=== PATIENT | male | born 1970 ===

== ENCOUNTER 2017-05-13 12:41 | Inpatient (IN) | payer MEDICAID, OTHER ==
[2017-05-13 13:26] LABS: URINE BILIRUBIN NEGATIVE (NEGATIVE); URINE BLOOD NEGATIVE (NEGATIVE); URINE COLOR Yellow (YELLOW); URINE GLUCOSE (UA) NORMAL (Normal); URINE KETONE NEGATIVE (NEGATIVE); URINE LEUKOCYTE ESTERASE NEG Leu/uL (Negative); URINE PROTEIN NEGATIVE (NEGATIVE); WBC URINE < 1 /hpf (0-5)
[2017-05-13 14:09] LABS: BASO # 0.1 K/uL (0.0-0.2); BASO % 0.4 % (0.0-2.0); EOS % 0.2 % (0.0-4.0); LYMPH # 1.8 K/uL (1.0-4.3); LYMPH % 15.1 % (20.0-40.0); MEAN CELL VOLUME 87.1 fL (80.0-94.0); MEAN CORPUSCULAR HEMOGLOBIN 29.2 pg (27.0-31.0); MEAN CORPUSCULAR HGB CONC 33.5 g/dL (33.0-37.0); MEAN PLATELET VOLUME 7.9 fL (7.2-11.7); MONO # 0.4 K/uL (0.0-0.8); MONO % 3.2 % (0.0-10.0); RED CELL DISTRIBUTION WIDTH 13.4 % (11.5-14.5); WHITE BLOOD COUNT 12.2 K/uL (4.8-10.8)
[2017-05-13 14:15] LABS: CHLORIDE 104 mmol/L (98-107); SODIUM 139 mmol/L (132-148)
[2017-05-13 14:18] LABS: CARBON DIOXIDE 24 mmol/L (22-30); GFR AFRICAN-AMERICAN > 60
[2017-05-13 14:19] LABS: BLOOD UREA NITROGEN 8 mg/dL (9-20); CALCIUM 9.4 mg/dl (8.6-10.4); GLUCOSE,RANDOM 90 mg/dL (75-110)
[2017-05-13 14:49] LABS: ALB/GLOB RATIO 1.1 (1.0-2.1); ALKALINE PHOSPHATASE 54 U/L (38-126); ALT/SGPT 22 U/L (21-72); AST/SGOT 30 U/L (17-59); BILIRUBIN,TOTAL 1.7 mg/dL (0.2-1.3); TOTAL PROTEIN 7.6 g/dL (6.3-8.3)
[2017-05-13 14:57] LABS: ALCOHOL SERUM < 10 mg/dl (0-10)
--- NOTE | 2017-05-13 15:05 | C.PDOC ---
History Of Present Illness Franklin Goetz is a 47 year old male who presents to the emergency department requesting heroin detox. Patient uses up to 10 bags a day intranasal for 3 days. Patient has seen multiple outpatient clinics for symptom relief. Patient denies fever, chills, nausea, vomit, chest pain or shortness of breath. No further medical complaints. PMD: None provided. Time Seen by Provider: 05/13/17 13:41 Chief Complaint (Nursing): Abdominal Pain History Per: Patient History/Exam Limitations: no limitations Onset/Duration Of Symptoms: Days (x1) Past Medical History Reviewed: Historical Data, Nursing Documentation, Vital Signs Vital Signs: Last Vital Signs Temp 98.2 F 05/13/17 15:01 Pulse 65 05/13/17 15:01 Resp 18 05/13/17 15:01 BP 122/77 05/13/17 15:01 Pulse Ox 97 05/13/17 15:06 - Medical History PMH: Denies: Diabetes, Hepatitis, HIV, HTN, Seizures, Sexually Transmitted Disease Family History: States: Unknown Family Hx - Social History Hx Tobacco Use: Yes (Heavy smoker >10 cigarettes daily) Hx Alcohol Use: Yes Hx Substance Use: Yes (Heroin, sniffs 10 bags daily) - Immunization History Hx Tetanus Toxoid Vaccination: No Hx Influenza Vaccination: No Hx Pneumococcal Vaccination: No Review Of Systems Except As Marked, All Systems Reviewed And Found Negative. Constitutional: Negative for: Fever, Chills Cardiovascular: Negative for: Chest Pain Respiratory: Negative for: Shortness of Breath Gastrointestinal: Negative for: Nausea, Vomiting Physical Exam - Physical Exam Appears: Well (sleeping), No Acute Distress Skin: Normal Color, Warm, Dry Eye(s): bilateral: Normal Inspection Neck: Normal, Normal ROM, Supple Cardiovascular: Rhythm Regular, No Murmur Respiratory: Normal Breath Sounds Extremity: Normal ROM, No Pedal Edema, No Deformity, No Swelling, No Other ( Track vasquez) Neurological/Psych: Normal Speech, Normal Motor, Normal Sensation ED Course And Treatment - Laboratory Results Result Diagrams: 05/13/17 14:04 05/13/17 14:04 Lab Interpretation: Abnormal (tox + opiates, UA neg.) O2 Sat by Pulse Oximetry: 97 (RA) Pulse Ox Interpretation: Normal Progress Note: clonidine, zofran PO - Physician Consult Information Outcome Of Conversation: 1500: d/w Detox- ok to detox Disposition Doctor Will See Patient In The: Hospital Counseled Patient/Family Regarding: Studies Performed, Diagnosis - Disposition Disposition: HOSPITALIZED Disposition Time: 15:06 Condition: GOOD - Clinical Impression Clinical Impression: Opiate abuse, continuous - Scribe Statement Calvin Denny Provider Attestation: All medical record entries made by the Scribe were at my direction and personally dictated by me. I have reviewed the chart and agree that the record accurately reflects my personal performance of the history, physical exam, medical decision making, and the department course for this patient. I have also personally directed, reviewed, and agree with the discharge instructions and disposition.
[2017-05-13] MEDS ORDERED: Aluminum Hydroxide/Magnesium Hydroxide Susp (30 mL) PO PRN (16:06)
--- NOTE | 2017-05-13 16:12 | PCM.BM ---
<Dora Wells - Last Filed: 05/13/17 16:11> Treatment Plan Problems - Problems identified on initial assessmt potiential for opiate withdrawal Date Initiated: 05/13/17 Time Initiated: 16:11 Assessment reference: NA Status: Active Treatment assets and liabiliti Patient Assests: ADL independent, physically healthy Patient Liabilities: substance abuse - Milieu Protocol Maintain good personal hygiene: daily Encourage regular showers, daily Remind patient to perform daily oral care, daily Assist patient to perform ADL's Maintain personal safety: every shift Educate patient to report safety concerns to staff, every shift Monitor environment for contraband/sharps Medication safety: Monitor for expected outcome, potential side effects: every shift, Assess barriers to learning: every shift, Assess readiness for medication education: every shift <Bere Bardales - Last Filed: 05/16/17 12:50> - Diagnosis (1) Opioid use disorder, severe, dependence Status: Acute Interventions: 05/16/17 12:50 * Assess 7x/week regarding severity of withdrawal * Educate regarding risks, benefits, side effects and alternatives of medications * Use Motivational Interviewing for abstinence * Use CBT for relapse prevention * Medication management for withdrawal symptoms * Encourage medication assisted treatment *
[2017-05-13] MEDS ORDERED: Buprenorphine Hydrochloride 2 mg SL ONE ×2 (16:39→18:06)
[2017-05-14] MEDS: Buprenorphine Hydrochloride 2 mg SL SCH (10:25)
--- NOTE | 2017-05-14 11:34 | PCM.PSYCH ---
Initial Psychiatric Evaluation - Initial Psychiatric Evaluation Type of Admission: Voluntary Legal Status: Capacity Chief Complaint (in patient's own words): "I need to stop heroin" History of Present Illness and Precipitating Events: The patient is seen, chart reviewed and case discussed. This is a 48-year-old male, single with 5 children, now homeless and unemployed. He uses heroine 12 bags a day intranasally for the past 6 months. First time he used was 10 years ago. He also used cocaine 10 years ago but denies current use. He smokes marijuana but again the last time was 3 months ago. He drinks alcohol occasionally and cigarettes is 1 pack per day. He denies all other drugs. This is his first detox and he has never been to rehabilitation or NA. Past psych history: Denies current or past symptoms or treatments. Medical history: Denies Family psych history: Denies Current Medications: Active Medications Generic Name Dose Route Start Last Admin Trade Name Freq PRN Reason Stop Dose Admin Al Hydrox/Mg Hydrox/Simethicone 30 ml 05/13/17 16:06 Maalox 30 Ml PO TID PRN Indigestion / Heartburn Buprenorphine HCl 8 mg 05/14/17 10:00 05/14/17 10:25 Subutex SL 05/18/17 09:59 8 mg DAILY BETTY Administration Taper Clonidine HCl 0.1 mg 05/13/17 16:06 Catapres PO Q8 PRN COWS Score More or Equal to 5 Hydroxyzine HCl 50 mg 05/13/17 16:07 05/14/17 11:17 Atarax PO 50 mg Q6H PRN Administration Anxiety Ibuprofen 600 mg 05/13/17 16:07 Motrin Tab PO Q6H PRN Pain, moderate (4-7) Loperamide HCl 2 mg 05/13/17 16:06 Imodium PO Q8 PRN Diarrhea Nicotine 1 patch 05/13/17 17:15 05/14/17 10:24 Nicoderm Cq TD Not Given DAILY BETTY Ondansetron HCl 4 mg 05/13/17 16:06 05/14/17 11:17 Zofran Tab PO 4 mg Q8 PRN Administration Nausea/Vomiting Quetiapine Fumarate 100 mg 05/14/17 22:00 Seroquel PO HS BETTY Trazodone HCl 100 mg 05/13/17 16:07 05/13/17 21:48 Desyrel PO 100 mg HS PRN Administration Insomnia Past Psychiatric History - Past Psychiatric History Previous Treatment History: None Pertinent Medical Hx (Current Medical&Sleep Prob, Allergies): Allergies Allergy/AdvReac Type Severity Reaction Status Date / Time No Known Allergies Allergy Unverified 05/13/17 13:01 No Known Home Med 05/13/17 Review of Systems - Psychiatric Psychiatric: Abnormal Sleep Pattern, Anxiety. absent: Depression, Hallucinations, Homicidal Ideation, Suicidal Ideation Mental Status Examination - Personal Presentation Personal Presentation: Looks stated age - Affect Affect: Constricted - Motor Activity Motor Activity: Calm - Reliability in Providing Information Reliability in Providing Information: Good - Speech Speech: Organized - Mood Mood: Anxious - Formal Thought Process Formal Thought Process: No Impairment - Cognitive Functions Orientation: Person, Place, Situation, Time Sensorium: Alert Attention/Concentration: Attentive Estimate of Intelligence: Average Judgement: Intact, as evidence by: Insight regarding need for hospitalization Memory: Recent intact, as evidence by: Ability to recall events of the day, Remote intact, as evidenced by: Abilit to recall sig. life events - Risk Risk: Withdrawal, Diminished functioning - Strength & Assets Inventory Strength & Assets Inventory: Cooperative - Limitations Limitations: Living alone DSM 5 DX - DSM 5 DSM 5 Diagnosis: Opioid use d/o - severe Opioid withdrawal Cocaine use d/o - severe, in sustained remission Tobacco use d/o - severe - Recommended/Plan of Treatment Treatment Recommendations and Plan of Treatment: Subutex detox Seroquel for insomnia As needed medications Attend groups and activities Supportive therapy and psychoeducation MA for abstinence CBT for relapse prevention Encourage MAT Refer to rehab or IOP Attend self-help groups as well 34 min Projected ELOS: 5 days Prognosis: good with treatment Discharge Plan and Discharge Criteria: No wdw sxs Refer to rehab or MAT/IOP - Smoking Cessation Smoking Cessation Initiated: Yes
[2017-05-15] MEDS: Buprenorphine Hydrochloride 2 mg SL SCH (09:24)
--- NOTE | 2017-05-15 12:47 | PCM.PYCHPN ---
Psychiatric Progress Note - Psychiatric Progress Note Patient seen today, length of contact: 17 min Patient Chief Complaint: "I can't sleep well" Problems Identified/Issues Discussed: The pt is seen, chart reviewed, case discussed with staff. Support given, CBT and TX used briefly No new symptoms reported, improving slowly and needs more time No SEs from medications, risks discussed. After care discussed Medication Change: Yes (detox changes daily) Medical Record Reviewed: Yes Mental Status Examination - Cognitive Function Orientation: Person, Place, Situation, Time Memory: Intact Attention: Poor Concentration: WNL Association: WNL Fund of Knowledge: Poor - Mood Mood: Anxious - Affect Affect: Constricted - Speech Speech: Appropriate - Formal Thought Process Formal Thought Process: No Impairment - Suicidal Ideation Suicidal Ideation: No - Homicidal Ideation Homicidal Ideation: No Goal/Treatment Plan - Goal/Treatment Plan Need for Continued Stay: Discharge may exacerbated symptoms, Severe functional impairment Progress Toward Problem(s) and Goals/Treatment Plan: Subutex detox Seroquel for insomnia As needed medications Attend groups and activities Supportive therapy and psychoeducation [place] for abstinence CBT for relapse prevention Encourage MAT Refer to rehab or IOP Attend self-help groups as well
[2017-05-16 06:26] VITALS: RESP 18
[2017-05-16] MEDS: Buprenorphine Hydrochloride 2 mg SL SCH (09:41)
--- NOTE | 2017-05-16 11:34 | PCM.PYCHPN ---
Psychiatric Progress Note - Psychiatric Progress Note Patient seen today, length of contact: 15 min Patient Chief Complaint: "I still can't sleep well" Problems Identified/Issues Discussed: The pt is seen, chart reviewed, case discussed with staff. The pt is compliant with medications and reports no side-effects. Symptoms are improving but needs more time to stabilize. After care discussed, support and psychoeducation given. Medication Change: Yes (detox changes daily) Medical Record Reviewed: Yes Mental Status Examination - Cognitive Function Orientation: Person, Place, Situation, Time Memory: Intact Attention: Poor Concentration: WNL Association: WNL Fund of Knowledge: Poor - Mood Mood: Anxious - Affect Affect: Constricted - Speech Speech: Appropriate - Formal Thought Process Formal Thought Process: No Impairment - Suicidal Ideation Suicidal Ideation: No - Homicidal Ideation Homicidal Ideation: No Goal/Treatment Plan - Goal/Treatment Plan Need for Continued Stay: Discharge may exacerbated symptoms, Severe functional impairment Progress Toward Problem(s) and Goals/Treatment Plan: Subutex detox Seroquel for insomnia increased As needed medications Attend groups and activities Supportive therapy and psychoeducation MT for abstinence CBT for relapse prevention Encourage MAT Refer to rehab or IOP Attend self-help groups as well
[2017-05-17 06:28] VITALS: O2SAT 98
--- NOTE | 2017-05-17 08:58 | PCM.PYCHDC ---
Mental Status Examination - Mental Status Examination Orientation: Person, Place, Situation, Time Memory: Intact Mood: Anxious Affect: Constricted Speech: Appropriate Attention: WNL Concentration: WNL Association: WNL Fund of Knowledge: WNL Formal Thought Process: No Impairment Suicidal Ideation: No Current Homicidal Ideation?: No Discharge Summary - Discharge Note Reason for Hospitalization: heroin detox Consultations:: List each consultation separately and include: 1. Reason for request. 2. Findings. 3. Follow-up Summary of Hospital Course include:: 1. Description of specific treatment plan utilized for patients during their course of treatmen. 2. Summarize the time- course for resolution of acute symptoms and/or regressed behaviors. 3. Describe issues identified and worked on during hospitalization. 4. Describe medication utilized. 5. Describe medical problems identified and treated. 6. Reassessment of suicide risk Summary of Hospital Course: The patient is seen, chart reviewed and case discussed. This is a 48-year-old male, single with 5 children, now homeless and unemployed. He uses heroine 12 bags a day intranasally for the past 6 months. First time he used was 10 years ago. He also used cocaine 10 years ago but denies current use. He smokes marijuana but again the last time was 3 months ago. He drinks alcohol occasionally and cigarettes is 1 pack per day. He denies all other drugs. This is his first detox and he has never been to rehabilitation or NA. Past psych history: Denies current or past symptoms or treatments. Medical history: Denies Family psych history: Denies Hospital course: The pt was admitted and started on treatment with psychotherapy, support, psychoeducation and medications. IA and CBT used. The pt attended groups and activities, as well as milieu therapy. All the risks and benefits of medications are discussed and the patient understood and agreed. The pt improved with the treatments provided. After care discussed with the patient. He agreed to go to [facility] rehab - Final Diagnosis (DSM 5) Condition upon Discharge: IMPROVED DSM 5: Opioid use d/o - severe Opioid withdrawal Cocaine use d/o - severe, in sustained remission Tobacco use d/o - severe Disposition: REHAB FACILITY/REHAB UNIT Follow-up Treatment Plan: Continue below medications after discharge. Follow after care plan as discussed. Use relapse prevention skills Return to ER or call 911 if suicidal, homicidal or symptoms relapse. Stay away from stress, alcohol and drugs. See primary doctor regularly and get labs. Prescriptions/Medication Reconciliation: QUEtiapine [Seroquel] 200 mg PO HS #30 tab - Smoking Cessation Smoking Cessation Medication prescribed: No - Antipsychotic Medications Pt discharged on 2 or more routine antipsychotic medications: No
[2017-05-17] MEDS: Buprenorphine Hydrochloride 2 mg SL SCH (09:04)
[2017-05-17 09:29] VITALS: BP 109/73; PULSE 98; TEMP 98.2
== END 2017-05-17 10:15 | disposition home or self-care (01) | DRG 745 ==
LOC: C.ER 12:41 → C.7D 15:04
PROVIDERS: ADMIT Psychiatry & Neurology Psychiatry; ATTEND Psychiatry & Neurology Psychiatry
PROC: HZ2ZZZZ Detoxification Services for Substance Abuse Treatment (ICD-10-PCS; principal; 2017-05-14)
PROC: HZ52ZZZ Individual Psychotherapy for Substance Abuse Treatment, Cognitive-Behavioral (ICD-10-PCS; 2017-05-14)
PROC: HZ42ZZZ Group Counseling for Substance Abuse Treatment, Cognitive-Behavioral (ICD-10-PCS; 2017-05-14)
PROC: HZ59ZZZ Individual Psychotherapy for Substance Abuse Treatment, Supportive (ICD-10-PCS; 2017-05-14)
PROC: HZ56ZZZ Individual Psychotherapy for Substance Abuse Treatment, Psychoeducation (ICD-10-PCS; 2017-05-14)
PROC: HZ46ZZZ Group Counseling for Substance Abuse Treatment, Psychoeducation (ICD-10-PCS; 2017-05-14)
DX: F11.23 Opioid dependence with withdrawal (principal); F14.21 Cocaine dependence, in remission; F17.210 Nicotine dependence, cigarettes, uncomplicated; G47.00 Insomnia, unspecified; Z59.0 Homelessness